=== PATIENT | female | born 1950 | race American Indian/Alaskan Native ===

== ENCOUNTER 2020-11-16 16:34 | Emergency (ER) | payer MEDICARE ==
--- NOTE | 2020-11-16 19:00 | Emergency Department Report ---
ED Fall HPI - General Chief Complaint: Fall Stated Complaint: BACK PAIN FROM FALL IN A POTHOLE Time Seen by Provider: 11/16/20 19:00 Source: patient, EMS Mode of arrival: Ambulatory - History of Present Illness Initial Comments: 70-year-old female presents to the ER today for evaluation after an accidental fall. Patient states that she was walking in the parking lot of [place] when she stepped in a pothole and fell. She states that this happened just prior to arrival to the ER. Patient states that she fell forward. She states that she landed on her left knee, and she did put her right hand out to brace herself and therefore she complains of pain to her left knee and right hand. She also complains of pain to her back. She states she is not exactly sure how she injured it but since the fall she has been having lumbar and thoracic back pain. She states that she feels the pain more so when she walks or with certain movement. She denies any head injury. She denies any neck pain. She denies any associate abdominal pain or chest pain. She denies any bowel or bladder incontinence, lower extremity numbness, tingling, weakness, saddle anesthesia or any other symptoms. Patient states that she has not taken anything for pain. She is on baby asa daily but no other blood thinners. MD Complaint: fall -: Sudden (today ) - Related Data Previous Rx's Medication Instructions Recorded Last Taken Type Ibuprofen [Motrin] 600 mg PO Q8H PRN #30 tablet 11/16/20 Unknown Rx Metaxalone [Skelaxin] 800 mg PO TID PRN #30 tablet 11/16/20 Unknown Rx Allergies Allergy/AdvReac Type Severity Reaction Status Date / Time No Known Allergies Allergy Unverified 11/16/20 16:47 ED Review of Systems ROS: Stated complaint: BACK PAIN FROM FALL IN A POTHOLE Other details as noted in HPI Constitutional: denies: chills, fever Eyes: denies: eye pain, eye discharge, vision change ENT: denies: ear pain, throat pain Respiratory: denies: cough, shortness of breath, SOB with exertion, SOB at rest, wheezing Cardiovascular: denies: chest pain, palpitations, dyspnea on exertion, edema, syncope, paroxysmal nocturnal dyspnea Gastrointestinal: denies: abdominal pain, nausea, diarrhea Genitourinary: denies: urgency, dysuria, discharge Musculoskeletal: back pain, arthralgia Skin: other (abrasion) Neurological: denies: headache, weakness, numbness, paresthesias, confusion, abnormal gait, vertigo Psychiatric: denies: anxiety, depression, auditory hallucinations, visual hallucinations, homicidal thoughts, suicidal thoughts Hematological/Lymphatic: denies: easy bleeding, easy bruising, swollen glands ED Past Medical Hx - Past Medical History Previous Medical History?: No Hx Hypertension: Yes - Surgical History Past Surgical History?: Yes Additional Surgical History: Tonsilectomy, Tubaligation - Social History Smoking Status: Former Smoker Substance Use Type: None - Medications Home Medications: Home Medications Medication Instructions Recorded Confirmed Last Taken Type Ibuprofen [Motrin] 600 mg PO Q8H PRN #30 tablet 11/16/20 Unknown Rx Metaxalone [Skelaxin] 800 mg PO TID PRN #30 tablet 11/16/20 Unknown Rx ED Physical Exam - General Limitations: Physical Limitation General appearance: alert, in no apparent distress - Head Head exam: Present: atraumatic, normocephalic, normal inspection - Eye Eye exam: Present: normal appearance, PERRL, EOMI Pupils: Present: normal accommodation - ENT ENT exam: Present: normal exam, mucous membranes moist, TM's normal bilaterally - Neck Neck exam: Present: normal inspection, full ROM. Absent: tenderness - Respiratory Respiratory exam: Present: normal lung sounds bilaterally. Absent: respiratory distress, wheezes, rales, rhonchi, chest wall tenderness - Cardiovascular Cardiovascular Exam: Present: regular rate, normal rhythm, normal heart sounds - GI/Abdominal GI/Abdominal exam: Present: soft. Absent: distended, tenderness, guarding, rebound - Extremities Exam Extremities exam: Present: normal inspection, full ROM - Expanded Upper Extremity Exam Right Hand Wrist exam: Present: full ROM, tenderness (mild ttp base of hand on salvador surface mild bruising.), ecchymosis. Absent: swelling, abrasion, laceration, deformity, crepidus, dislocation, erythema, amputation, nail avulsion, subungual hematoma Neuro motor exam: Present: wrist extension intact, thumb opposition intact, thumb IP flexion intact, thumb adduction intact, fingers 2-5 abduction intact Neurosensory exam: Present: radial nerve intact, ulnar nerve intact, median nerve intact Vascular: Present: normal capillary refill. Absent: vascular compromise - Expanded Lower Extremity Exam Left Knee exam: Present: full ROM, tenderness (Mild ttp anterior right knee ), swelling (Mild anterior right knee), abrasion (Anterior right knee). Absent: laceration, deformity, crepidus, dislocation, erythema, effusion Neuro vascular tendon exam: Absent: no vascular compromise, abnormal cap refill Gait: Positive: observed and limited by pain - Back Exam Back exam: Present: normal inspection, full ROM, paraspinal tenderness (left interscapular area and left lumbar area), vertebral tenderness (Lumbar area ) - Neurological Exam Neurological exam: Present: alert, oriented X3, CN II-XII intact, normal gait. Absent: motor sensory deficit - Psychiatric Psychiatric exam: Present: normal affect, normal mood - Skin Skin exam: Present: intact ED Course Vital Signs 11/16/20 16:47 Temperature 98.5 F Pulse Rate 110 H Respiratory 20 Rate Blood Pressure 181/107 O2 Sat by Pulse 98 Oximetry ED Medical Decision Making - Radiology Data Radiology results: report reviewed Patient: IRAIDA DEL CASTILLO MR#: [id number] : 1950 Acct:[id number] Age/Sex: 70 / F ADM Date: 11/16/20 Loc: ED Attending Dr: Ordering Physician: LATOYA ROCHA Date of Service: 11/16/20 Procedure(s): XR hand 3+V RT Accession Number(s): [id number] cc: LATOYA ROCHA Fluoro Time In Minutes: RIGHT HAND 3 VIEW(S) INDICATION / CLINICAL INFORMATION: fall/hand injury/pain COMPARISON: None available. FINDINGS: BONES / JOINT(S): No acute fracture or subluxation. 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 SOFT TISSUES: No significant abnormality. ADDITIONAL FINDINGS: None. Signer Name: Cristhian Fernández MD Signed: 11/16/2020 8:36 PM Workstation Name: [id number] Transcribed By: DT Dictated By: Aníbal Fernández MD Electronically Authenticated By: Aníbal Fernández MD Signed Date/Time: 11/16/202035 DD/ 34 TD/TT: Ordering Physician: LATOYA ROCHA Date of Service: 11/16/20 Procedure(s): XR knee 3V RT Accession Number(s): [id number] cc: LATOYA ROCHA Fluoro Time In Minutes: RIGHT KNEE 3 VIEW(S) INDICATION / CLINICAL INFORMATION: fall/knee pain COMPARISON: None available. FINDINGS: BONES / JOINT(S): No acute fracture or subluxation. No significant arthritis. SOFT TISSUES: No significant abnormality. ADDITIONAL FINDINGS: None. Signer Name: Cristhian Fernández MD Signed: 11/16/2020 8:35 PM Workstation Name: [id number] Transcribed By: DT Dictated By: Aníbal Fernández MD Electronically Authenticated By: Aníbal Fernández MD Signed Date/Time: 11/16/202034 DD/ 34 TD/TT: Patient: IRAIDA DEL CASTILLO MR#: [id number] : 1950 Acct:[id number] Age/Sex: 70 / F ADM Date: 11/16/20 Loc: ED Attending Dr: Ordering Physician: LATOYA ROCHA Date of Service: 11/16/20 Procedure(s): XR spine lumbosacral 2-3V Accession Number(s): [id number] cc: LATOYA ROCHA Fluoro Time In Minutes: LUMBAR SPINE 3 VIEWS INDICATION / CLINICAL INFORMATION: back pain/fall. COMPARISON: None available. FINDINGS: VERTEBRAE: No acute fracture. No significant malalignment. Transitional lumb osacral segment with mild degenerative change between the left transverse process and the sacrum. DISC SPACES / FACET JOINTS:No significant abnormality. PARASPINAL SOFT TISSUES:No significant abnormality. ADDITIONAL FINDINGS: None. Signer Name: Cristhian Fernández MD Signed: 11/16/2020 8:35 PM Workstation Name: [id number] Transcribed By: DT Dictated By: Aníbal Fernández MD Electronically Authenticated By: Aníbal Fernández MD Signed Date/Time: 11/16/202034 Patient: IRAIDA DEL CASTILLO MR#: [id number] : 1950 Acct:[id number] Age/Sex: 70 / F ADM Date: 11/16/20 Loc: ED Attending Dr: Ordering Physician: LATOYA ROCHA Date of Service: 11/16/20 Procedure(s): XR spine thoracic 3V Accession Number(s): [id number] cc: LATOYA ROCHA Fluoro Time In Minutes: THORACIC SPINE 3 VIEWS INDICATION / CLINICAL INFORMATION: back pain/fall. COMPARISON: None available. FINDINGS: VERTEBRAE: No acute fracture. No significant malalignment. DISC SPACES / FACET JOINTS:No significant abnormality. PARASPINAL SOFT TISSUES:No significant abnormality. ADDITIONAL FINDINGS: None. Signer Name: Cristhian Fernández MD Signed: 11/16/2020 8:33 PM Workstation Name: [id number] Transcribed By: DT Dictated By: Aníbal Fernández MD Electronically Authenticated By: Aníbal Fernández MD Signed Date/Time: 11/16/202032 DD/ 30 TD/TT: - Medical Decision Making X-ray of the thoracic spine, lumbar spine, left knee and hand shows nothing acute. Patient currently resting comfortably. She is not in any acute pain distress. She is not toxic or ill-appearing. She is neurologically intact. Repeat vital signs show some improvement of her blood pressure and heart rate. Patient states she has been compliant with her BP meds and usually take them in morning. Recommend she continue her current BP regimen. She currently has no symptoms related to her BP and therefore no emergent intervention needed at this time. Discussed imaging results with patient. Suspect contusion and muscle strain at this time. Discussed suspected diagnosis and treatment plan with patient Patient has an abrasion to the left knee,- dressing applied and tetanus updated. Wound care discussed with patient. Recommend the patient close follow-up with her primary care doctor. Patient expressed understanding of instructions and agree with plan. Patient was stable at time of discharge. Critical care attestation.: If time is entered above; I have spent that time in minutes in the direct care of this critically ill patient, excluding procedure time. ED Disposition Clinical Impression: Contusion, knee, Strain, back, Hand contusion, Abrasion, knee Disposition: - TO HOME OR SELFCARE Is pt being admited?: No Does the pt Need Aspirin: No Condition: Stable Instructions: Abrasion, Muscle Strain, [id number], Contusion, [id number], Wound Care, Adult Additional Instructions: Take the Motrin and the skelaxin as prescribed. Keep abrasion clean daily with soap and water. Dry well, then apply thin layer of neosporin to wound. Do this daily until it heals. Follow up with Primary care physician in 1-2 weeks especially if any symptoms persist. Return to ED if symptoms worsens or changes in anyway. Prescriptions: Ibuprofen [Motrin] 600 mg PO Q8H PRN #30 tablet PRN Reason: Pain Metaxalone [Skelaxin] 800 mg PO TID PRN #30 tablet PRN Reason: Muscle Spasm Referrals: JHONATHAN GOLD MD [Primary Care Provider] - 3-5 Days Time of Disposition: 20:50
[2020-11-16] MEDS ORDERED: ACETAMINOPHEN 500 MG TAB PO ONE (19:36)
--- NOTE | 2020-11-16 20:37 | XRay Report ---
THORACIC SPINE 3 VIEWS INDICATION / CLINICAL INFORMATION: back pain/fall. COMPARISON: None available. FINDINGS: VERTEBRAE: No acute fracture. No significant malalignment. DISC SPACES / FACET JOINTS:No significant abnormality. PARASPINAL SOFT TISSUES:No significant abnormality. ADDITIONAL FINDINGS: None. Signer Name: Cristhian Fernández MD Signed: 11/16/2020 8:33 PM Workstation Name: [id number]
--- NOTE | 2020-11-16 20:39 | XRay Report ---
LUMBAR SPINE 3 VIEWS INDICATION / CLINICAL INFORMATION: back pain/fall. COMPARISON: None available. FINDINGS: VERTEBRAE: No acute fracture. No significant malalignment. Transitional lumbosacral segment with mild degenerative change between the left transverse process and the sacrum. DISC SPACES / FACET JOINTS:No significant abnormality. PARASPINAL SOFT TISSUES:No significant abnormality. ADDITIONAL FINDINGS: None. Signer Name: Cristhian Fernández MD Signed: 11/16/2020 8:35 PM Workstation Name: [id number]
--- NOTE | 2020-11-16 20:40 | XRay Report ---
RIGHT KNEE 3 VIEW(S) INDICATION / CLINICAL INFORMATION: fall/knee pain COMPARISON: None available. FINDINGS: BONES / JOINT(S): No acute fracture or subluxation. No significant arthritis. SOFT TISSUES: No significant abnormality. ADDITIONAL FINDINGS: None. Signer Name: Cristhian Fernández MD Signed: 11/16/2020 8:35 PM Workstation Name: [id number]
--- NOTE | 2020-11-16 20:40 | XRay Report ---
RIGHT HAND 3 VIEW(S) INDICATION / CLINICAL INFORMATION: fall/hand injury/pain COMPARISON: None available. FINDINGS: BONES / JOINT(S): No acute fracture or subluxation. Mild degenerative arthrosis of the thumb CMC join t. SOFT TISSUES: No significant abnormality. ADDITIONAL FINDINGS: None. Signer Name: Cristhian Fernández MD Signed: 11/16/2020 8:36 PM Workstation Name: [id number]
[2020-11-16] MEDS ORDERED: NEOMY 3.5 MG/BACIT 400 UNITS/POLY B 5000 UNITS/GM OINT PACKET TP ONE (20:47)
[2020-11-16] MEDS ORDERED: TETANUS,DIPH,PERTUSS(ACELL) VACCINE 0.5 ML SYRINGE IM ONE (20:58)
[2020-11-17 01:21] VITALS: BP 158/92
== END 2020-11-16 21:35 | disposition home or self-care (01) ==
LOC: ED 16:34
DX: S39.012A Strain of muscle, fascia and tendon of lower back, initial encounter (principal); S80.02XA Contusion of left knee, initial encounter; S60.229A Contusion of unspecified hand, initial encounter; I10 Essential (primary) hypertension; Z79.899 Other long term (current) drug therapy; Z87.891 Personal history of nicotine dependence; Z98.890 Other specified postprocedural states; Z98.51 Tubal ligation status; W18.39XA Other fall on same level, initial encounter; Y93.89 Activity, other specified; Y92.89 Other specified places as the place of occurrence of the external cause; Y99.8 Other external cause status
CPT/HCPCS: 72072; 72100; 73130; 73562; 90471; 90715; 99284; A6250